=== PATIENT | male | born 1980 | race Caucasian/White ===

== ENCOUNTER 2018-09-09 18:39 | Inpatient (IN) | payer OTHER ==
[2018-09-09] MEDS ORDERED: HYDROCODONE/APAP (5/325) TAB PO (19:30)
[2018-09-09] MEDS ORDERED: ONDANSETRON 4 MG INJ IV (19:30)
[2018-09-09] MEDS ORDERED: ACETAMINOPHEN 325 MG TAB PO (19:30)
[2018-09-09] MEDS ORDERED: NACL 0.9% 3 ML SYG IV (19:30)
[2018-09-09] MEDS: D5W-0.45 NACL + KCL 20 MEQ 1,000 ML IV (20:31)
[2018-09-09] MEDS: morphine 2 MG INJ IV (21:26)
[2018-09-10] MEDS: D5W-0.45 NACL + KCL 20 MEQ 1,000 ML IV ×2 (05:37→15:53)
[2018-09-10 06:34] LABS: ADD MAN DIFF? NO
[2018-09-10 06:35] LABS: WHITE BLOOD COUNT 6.5 10^3/ul (4.8-10.8)
[2018-09-10 06:35] LABS: BASOPHILS % 0.5 % (0.0-2.0); EOSINOPHILS # 0.2 10^3/ul (0.0-0.5); EOSINOPHILS % 3.4 % (0.0-7.0); HEMATOCRIT 44.3 % (37.0-47.0); HEMOGLOBIN 14.7 g/dl (12.0-16.0); LYMPHOCYTES # 1.4 10^3/ul (0.8-2.9); LYMPHOCYTES % 20.9 % (15.0-51.0); MEAN CORPUSCULAR HEMOGLOBIN 28.2 pg (29.0-33.0); MEAN CORPUSCULAR HGB CONC 33.2 g/dl (32.0-37.0); MEAN PLATELET VOLUME 11.1 fl (7.4-10.4); MONOCYTE # 0.9 10^3/ul (0.3-0.9); MONOCYTES % 14.4 % (0.0-11.0); NEUTROPHILS % 60.6 % (39.0-77.0); PLATELET COUNT 178 10^3/UL (140-415); RED BLOOD COUNT 5.21 10^6/ul (4.20-5.40)
[2018-09-10 07:11] LABS: ALANINE AMINOTRANSFERASE 73 IU/L (13-69); ALBUMIN 3.7 g/dl (3.3-4.9); ALBUMIN/GLOBULIN RATIO 1.23; ALKALINE PHOSPHATASE 59 IU/L (42-121); ANION GAP 9 (5-13); ASPARTATE AMINO TRANSFERASE 43 IU/L (15-46); BILIRUBIN,INDIRECT 0.6 mg/dl (0-1.1); BILIRUBIN,TOTAL 0.6 mg/dl (0.2-1.3); BLOOD UREA NITROGEN 14 mg/dl (7-20); CARBON DIOXIDE 32 mmol/L (21-31); CHLORIDE 103 mmol/L (97-110); Estimated GFR > 60 mL/min (>60); GLUCOSE 102 mg/dl (70-220); POTASSIUM 3.7 mmol/L (3.5-5.1); SODIUM 144 mmol/L (135-144); TOTAL PROTEIN 6.7 g/dl (6.1-8.1)
[2018-09-10] MEDS: morphine 2 MG INJ IV ×4 (08:00→21:06)
[2018-09-10 08:02] LABS: HEMOGLOBIN A1C 5.1 % (0-5.9)
[2018-09-10] MEDS: PHENOL 1.4% SOLN 180 ML BTL MT (21:07)
[2018-09-11] MEDS: morphine 2 MG INJ IV ×5 (00:55→20:01)
[2018-09-11] MEDS: D5W-0.45 NACL + KCL 20 MEQ 1,000 ML IV ×3 (02:53→21:17)
[2018-09-11] MEDS: PHENOL 1.4% SOLN 180 ML BTL MT ×4 (05:48→23:25)
[2018-09-11 06:35] LABS: ADD MAN DIFF? NO
[2018-09-11 06:43] LABS: BASOPHILS % 0.4 % (0.0-2.0); EOSINOPHILS # 0.2 10^3/ul (0.0-0.5); EOSINOPHILS % 3.2 % (0.0-7.0); HEMATOCRIT 46.3 % (42.0-52.0); HEMOGLOBIN 15.2 g/dl (14.0-18.0); LYMPHOCYTES # 1.5 10^3/ul (0.8-2.9); LYMPHOCYTES % 19.3 % (15.0-51.0); MEAN CORPUSCULAR HEMOGLOBIN 28.1 pg (29.0-33.0); MEAN CORPUSCULAR HGB CONC 32.8 g/dl (32.0-37.0); MEAN CORPUSCULAR VOLUME 85.7 fl (82.0-101.0); MONOCYTE # 0.9 10^3/ul (0.3-0.9); MONOCYTES % 11.2 % (0.0-11.0); NEUTROPHILS % 65.6 % (39.0-77.0); PLATELET COUNT 193 10^3/UL (140-415); RED CELL DISTRIBUTION WIDTH 13.6 % (11.5-14.5)
[2018-09-11 06:43] LABS: WHITE BLOOD COUNT 7.6 10^3/ul (4.8-10.8)
[2018-09-11 07:17] LABS: ANION GAP 11 (5-13); BLOOD UREA NITROGEN 13 mg/dl (7-20); CALCIUM 9.4 mg/dl (8.4-10.2); CARBON DIOXIDE 30 mmol/L (21-31); CHLORIDE 104 mmol/L (97-110); CREATININE 0.97 mg/dl (0.61-1.24); Estimated GFR > 60 mL/min (>60); GLUCOSE 89 mg/dl (70-220); MAGNESIUM 2.1 mg/dl (1.7-2.5); POTASSIUM 3.9 mmol/L (3.5-5.1); SODIUM 145 mmol/L (135-144)
[2018-09-11] MEDS: INFLUENZA VIRUS VACCINE 0.5 ML (DISPENSING) IM* (12:15)
[2018-09-11] MEDS: DIATR MEGLU/DIATRIZOATE SODIUM 120 ML BTL (13:32)
[2018-09-12] MEDS: morphine 2 MG INJ IV ×5 (00:25→19:59)
[2018-09-12] MEDS: D5W-0.45 NACL + KCL 20 MEQ 1,000 ML IV ×2 (04:02→18:35)
[2018-09-12] MEDS: PHENOL 1.4% SOLN 180 ML BTL MT (09:32)
[2018-09-12 11:22] LABS: ANION GAP 12 (5-13); BLOOD UREA NITROGEN 15 mg/dl (7-20); CALCIUM 9.6 mg/dl (8.4-10.2); CARBON DIOXIDE 28 mmol/L (21-31); CHLORIDE 104 mmol/L (97-110); Estimated GFR > 60 mL/min (>60); GLUCOSE 100 mg/dl (70-220); MAGNESIUM 2.1 mg/dl (1.7-2.5); SODIUM 144 mmol/L (135-144)
[2018-09-13] MEDS: D5W-0.45 NACL + KCL 20 MEQ 1,000 ML IV ×2 (04:41→13:17)
[2018-09-13] MEDS: morphine 2 MG INJ IV ×2 (04:42→12:20)
[2018-09-13 05:47] LABS: ADD MAN DIFF? NO
[2018-09-13 05:56] LABS: BASOPHILS % 0.6 % (0.0-2.0); EOSINOPHILS # 0.3 10^3/ul (0.0-0.5); HEMATOCRIT 44.6 % (42.0-52.0); HEMOGLOBIN 14.8 g/dl (14.0-18.0); LYMPHOCYTES # 1.8 10^3/ul (0.8-2.9); LYMPHOCYTES % 28.1 % (15.0-51.0); MEAN CORPUSCULAR HEMOGLOBIN 28.4 pg (29.0-33.0); MEAN CORPUSCULAR HGB CONC 33.2 g/dl (32.0-37.0); MEAN CORPUSCULAR VOLUME 85.6 fl (82.0-101.0); MEAN PLATELET VOLUME 10.7 fl (7.4-10.4); MONOCYTE # 0.6 10^3/ul (0.3-0.9); MONOCYTES % 10.3 % (0.0-11.0); NEUTROPHIL # 3.5 10^3/ul (1.6-7.5); NEUTROPHILS % 55.7 % (39.0-77.0); PLATELET COUNT 212 10^3/UL (140-415); RED BLOOD COUNT 5.21 10^6/ul (4.70-6.10); RED CELL DISTRIBUTION WIDTH 13.2 % (11.5-14.5)
[2018-09-13 05:56] LABS: WHITE BLOOD COUNT 6.2 10^3/ul (4.8-10.8)
[2018-09-13 06:31] LABS: ANION GAP 9 (5-13); BLOOD UREA NITROGEN 13 mg/dl (7-20); CALCIUM 9.1 mg/dl (8.4-10.2); CARBON DIOXIDE 30 mmol/L (21-31); CHLORIDE 103 mmol/L (97-110); CREATININE 0.88 mg/dl (0.61-1.24); Estimated GFR > 60 mL/min (>60); GLUCOSE 92 mg/dl (70-220); POTASSIUM 4.1 mmol/L (3.5-5.1); SODIUM 142 mmol/L (135-144)
[2018-09-13] MEDS: ENOXAPARIN 40 MG/0.4 ML SYG SC (09:09)
== END 2018-09-13 14:08 | disposition home or self-care (01) | DRG 390 ==
LOC: 5EC 18:39 → PP2 09-11 22:59
DX: K56.609 Unspecified intestinal obstruction, unspecified as to partial versus complete obstruction (principal)
CPT/HCPCS: 74018; 74250; 80048; 80053; 83036; 83735; 84100; 85025; 90686